=== PATIENT | female | born 1990 | race Caucasian/White ===

== ENCOUNTER → 2023-02-28 | Outpatient (CLI) | payer OTHER | LOC: COL.RAD 08:17 | DX: N97.9 Female infertility, unspecified (principal); Q51.3 Bicornate uterus ==

== ENCOUNTER → 2023-03-07 | Outpatient (CLI) | payer OTHER | LOC: COL.RAD 09:05 | DX: N97.9 Female infertility, unspecified (principal); Q51.3 Bicornate uterus | CPT/HCPCS: Q9967 ==